=== PATIENT | male | born 1965 | race Caucasian/White ===

== ENCOUNTER 2018-04-26 09:36 | Day surgery (SDC) | payer OTHER ==
[~2018-04-26] VITALS: Ht 180.3 cm; Wt 93.0 kg
[2018-04-26] MEDS ORDERED: KETOROLAC 30 MG/ML VIAL ONE (12:14)
[2018-04-26] MEDS ORDERED: LIDOCAINE 2% 100 MG/5 ML UJET TP ONE (12:14)
== END 2018-04-26 14:10 | disposition home or self-care (01) ==
LOC: MDS 09:36 → MMU 09:39 → MDS 14:10
PROVIDERS: ATTEND Internal Medicine Gastroenterology
DX: D12.9 Benign neoplasm of anus and anal canal (principal); K57.30 Diverticulosis of large intestine without perforation or abscess without bleeding; K64.8 Other hemorrhoids; K62.2 Anal prolapse; Z98.890 Other specified postprocedural states; E66.3 Overweight; Z68.28 Body mass index [BMI] 28.0-28.9, adult; Z88.8 Allergy status to other drugs, medicaments and biological substances; Z79.899 Other long term (current) drug therapy
CPT/HCPCS: J1885